=== PATIENT | female | born 1955 | race Caucasian/White ===

== ENCOUNTER → 2018-05-07 | Outpatient (CLI) | payer BC ==
--- NOTE | 2018-05-07 16:22 | RADIOLOGY IMAGING REPORT ---
[place] [facility] [place] NAME: Lina Thorpe : 1955 MR: [id number] V: [id number] EXAM DATE: ORDERING PHYSICIAN: DEE JONES TECHNOLOGIST: Location: [facility] Patient: Lina Thorpe : 1955 Visit/Account:[id number] Date of Sevice: 05/07/2018 DEXA Scan Clinical history: Osteopenia. Comparison: DEXA scan from 06/14/1998. LUMBAR SPINE: The bone mineral density (BMD) measured from L1-L4 correlates with a Z-score 0 and a T-score of -1.4 which is osteopenia as defined by the World Health Organization. The corresponding risk of fracture in the lumbar spine is increased compared with a young adult reference population. This value has d ecreased by 10 % since the prior study. More than 5% change is considered significant. HIP: Bone mineral density (BMD) measured in the Left femoral neck region correlates with a Z-score 0 and a T-score of -1.4 which is osteopenia as defined by the World Health Organization. The correspondin g risk of fracture in the hip is increased compared with a young adult reference population. The tota l hip value has decreased by 16.3 % since the prior study. More than 5% change is considered signifi cant. Bone mineral density (BMD) measured in the Femoral Neck region measures 0.842 g/cm2. IMPRESSION: 1. Lumbar spine: Osteopenia. There has been decreased in the bone mineral density since the previou s exam. 2. Left femoral neck region: Osteopenia. There has been decreased in the bone mineral density of th e total hip since the previous exam. 3. Femoral Neck: Bone Mineral Density is 0.842 g/cm2 The next DEXA scan of this patient should include the following sites: L1-L4 and the left hip. FRAX? WHO Fracture Risk Assessment Tool link: <http://www.shef.ac.uk/FRAX/tool.jsp?locationValue=9> PLEASE NOTE: 1) The World Health Organization defines low BMD as follows: T-score Normal > -1 Osteopenia < -1 and > -2.5 Osteoporosis < -2.5 without fractures Established osteoporosis < -2.5 with fractures 2) In general, you may wish to consider: Diagnosis Treatment Follow-up DEXA Normal BMD Prevention 2-3 years Osteopenia Prevention/therapy 1-2 years Osteoporosis Therapy Yearly 3) Fracture risk estimated from the T-score is more accurate for vertebral fractures (often spontane ous) than for hip fractures. Report Dictated By: Jude Samuel at 05/07/2018 4:16 PM Report E-Signed By: Jude Samuel at 05/07/2018 4:18 PM WSN:[id number]
--- NOTE | 2018-05-16 15:18 | RADIOLOGY IMAGING REPORT ---
FACILITY: [facility] - [place] PATIENT NAME: JULI MAYFIELD : [id number] MR: [id number] V: [id number] EXAM DATE: [id number] ORDERING PHYSICIAN: DEE JONES TECHNOLOGIST: Celeste Paiz PROCEDURE:BILATERAL DIGITAL SCREENING MAMMOGRAM WITH CAD ASSISTED INTERPRETATION & 3D TOMOSYNTHESIS COMPARISON:[facility]. INDICATIONS:SCREENING FINDINGS: The breasts are heterogeneously dense. Benign appearing asymmetries are scattered bilaterally, essentially unchanged. DIAGNOSTIC CATEGORY 1--NEGATIVE. RECOMMENDATIONS: ROUTINE MAMMOGRAM AND CLINICAL EVALUATION IN 1 YR. IMPRESSION: BIRADS 1: Negative. Dictated by: Conrado Kent M.D. on 05/08/2018 at 16:23 Transcribed by: LAURY on 05/09/2018 at 8:35 Approved by: Jude Reich on 05/16/2018 at 15:17 [facility]
== END ==
LOC: MAMO 01:14
PROVIDERS: ATTEND Internal Medicine
DX: Z13.820 Encounter for screening for osteoporosis (principal); Z12.31 Encounter for screening mammogram for malignant neoplasm of breast; M85.88 Other specified disorders of bone density and structure, other site
CPT/HCPCS: 77063; 77067; 77080